=== PATIENT | male | born 1990 | race Asian ===

== ENCOUNTER 2020-04-03 20:08 | Emergency (ER) | payer OTHER ==
[~2020-04-03] VITALS: Ht 180.3 cm; Wt 79.4 kg
[2020-04-03] MEDS ORDERED: LORazepam 2 MG/ML VIAL IM ONE (20:30)
[2020-04-03 23:40] VITALS: BP_SYST 124
== END 2020-04-03 23:39 | disposition home or self-care (01) ==
LOC: SED 20:08
DX: T40.7X5A Adverse effect of cannabis (derivatives), initial encounter (principal); F12.90 Cannabis use, unspecified, uncomplicated; Y92.89 Other specified places as the place of occurrence of the external cause
CPT/HCPCS: 36415; 71045; 84484; 93005; 96372; 99285; J2060